=== PATIENT | female | born 1950 | race Hispanic/Latino ===

== ENCOUNTER 2021-04-04 11:26 | Emergency (ER) | payer OTHER ==
[2021-04-04 13:43] LABS: SARS-COV-2 RT PCR POSITIVE (NEGATIVE)
--- NOTE | 2021-04-04 13:49 | ER ---
Nurse's Notes [facility] Name: Elsa Lake Age: 70 yrs Sex: Female : 1950 Arrival Date: 04/04/2021 Time: 11:27 Bed 12 Private MD: Diagnosis: Coronavirus infection, unspecified;Streptococcal pharyngitis Presentation: 04/04 11:33 Chief complaint: Patient states: KATELYNN ear pain, sore throat and cough x2 days. vg1 Coronavirus screen: Vaccine status: Patient reports being unvaccinated. Client denies travel out of the [place] in the last 14 days. Ebola Screen: Patient negative for fever greater than or equal to 101.5 degrees Fahrenheit, and additional compatible Ebola Virus Disease symptoms. Initial Sepsis Screen: Does the patient meet any 2 criteria? No. Patient's initial sepsis screen is negative. Does the patient have a suspected source of infection? No. Patient's initial sepsis screen is negative. Risk Assessment: Do you want to hurt yourself or someone else? Patient reports no desire to harm self or others. Onset of symptoms was April 02, 2021. 11:33 Method Of Arrival: Ambulatory 1 11:33 Acuity: FLORI 4 vg1 Triage Assessment: 11:39 General: Appears in no apparent distress. comfortable, Behavior is calm, cooperative. vg1 Pain: Complains of pain in throat, right ear, left ear Pain currently is 6 out of 10 on a pain scale. Pain began 2-3 days ago. Historical: - Allergies: 11:39 Flu vaccine; vg1 - Home Meds: 11:39 None [Active]; vg1 - PMHx: 11:39 None; vg1 - PSHx: 11:39 section; vg1 - Immunization history:: Client reports having NOT received the Covid vaccine. - Social history:: Smoking status: Patient denies any tobacco usage or history of. Screenin:13 Abuse screen: Denies threats or abuse. Denies injuries from another. Nutritional ww screening: No deficits noted. Tuberculosis screening: No symptoms or risk factors identified. Fall Risk None identified. Assessment: 12:15 General: Appears in no apparent distress. well groomed, well developed, well nourished, ww Behavior is calm, cooperative, appropriate for age. Pain: Complains of pain in uvula, left aspect of posterior pharynx and right aspect of posterior pharynx. Neuro: Level of Consciousness is awake, alert, obeys commands, Oriented to person, place, time, situation, Appropriate for age Speech is normal. Cardiovascular: No deficits noted. Denies chest pain, Capillary refill < 3 seconds Patient's skin is warm and dry. Respiratory: Reports cough that is Airway is patent Respiratory effort is even, unlabored, Respiratory pattern is regular, symmetrical, Breath sounds are clear. GI: No deficits noted. No signs and/or symptoms were reported involving the gastrointestinal system. : No deficits noted. No signs and/or symptoms were reported regarding the genitourinary system. EENT: Throat is reddened Reports nasal congestion. Derm: No deficits noted. No signs and/or symptoms reported regarding the dermatologic system. Skin is intact, Skin is pink, warm \T\ dry. Musculoskeletal: No deficits noted. No signs and/or symptoms reported regarding the musculoskeletal system. 14:13 Reassessment: Patient appears in no apparent distress at this time. No changes from previously documented assessment. Patient and/or family updated on plan of care and expected duration. Pain level reassessed. Vital Signs: 11:33 BP 157 / 80; Pulse 110; Resp 18; Temp 99.5(O); Pulse Ox 96% ; Weight 57.61 kg; Height 4 vg1 ft. 10 in. (147.32 cm); Pain 6/10; 13:42 BP 139 / 66; Pulse 100; Resp 18; ww 11:33 Body Mass Index 26.54 (57.61 kg, 147.32 cm) vg1 Atif Coma Score: 13:42 Eye Response: spontaneous(4). Verbal Response: oriented(5). Motor Response: obeys commands(6). Total: 15. ED Course: 11:27 Patient arrived in ED. as 11:38 Triage completed. vg1 11:39 Arm band placed on. vg1 11:44 COVID swab sent to lab. Flu and/or RSV swab sent to lab. Strep swab sent to lab. vg1 11:51 Kati Ariza RN is Primary Nurse. ww 11:56 Lat[facility]ll[facility]C [facility]. kb 11:56 Jose Braga MD is Attending Physician. kb 14:13 Patient has correct armband on for positive identification. Bed in low position. ww 14:13 No provider procedures requiring assistance completed. Patient did not have IV access ww during this emergency room visit. Administered Medications: No medications were administered Outcome: 13:49 Discharge ordered by . kb 14:13 Discharged to home ambulatory. ww 14:13 Condition: stable 14:13 Discharge instructions given to patient, Instructed on discharge instructions, follow up and referral plans. medication usage, safety practices, quaretine Demonstrated understanding of instructions, follow-up care, medications, Prescriptions given X 1. 14:14 Patient left the ED. ww Signatures: Latasha Ulloa, PILLAR MAN-C PILLAR MAN-Marlys Perez Victoria, RN RN vg1 Kati Ariza RN RN ww Corrections: (The following items were deleted from the chart) 11:39 11:33 BP 157 / 93; Pulse 110bpm; Resp 18bpm; Pulse Ox 96%; Temp 99.5F Oral; 57.61 kg; vg1 Height 4 ft. 10 in.; BMI: 26.5; Pain 6/10; vg1 14:13 12:15 Reassessment: Patient appears in no apparent distress at this time. No changes ww from previously documented assessment. ww
--- NOTE | 2021-04-04 13:49 | EDPHYS ---
Physician Documentation [facility] Name: Elsa Lake Age: 70 yrs Sex: Female : 1950 Arrival Date: 04/04/2021 Time: 11:27 Bed 12 Private MD: ED Physician Jose Braga HPI: 04/04 16:09 This 70 yrs old Female presents to ER via Ambulatory with complaints of Sore kb Throat. 16:09 The patient presents with sore throat. The patient describes throat pain as constant. kb Onset: The symptoms/episode began/occurred 2 day(s) ago. Severity of symptoms: At their worst the symptoms were mild, moderate, in the emergency department the symptoms are unchanged. Modifying factors: The symptoms are alleviated by nothing, the symptoms are aggravated by swallowing, Patient's oral intake status: good unaware of sick contact. Associated signs and symptoms: Pertinent positives: cough, Pertinent negatives fever. The patient has not experienced similar symptoms in the past. The patient has not recently seen a physician. Pt reports sore throat and cough for 2 days. . Historical: - Allergies: 11:39 Flu vaccine; vg1 - Home Meds: 11:39 None [Active]; vg1 - PMHx: 11:39 None; vg1 - PSHx: 11:39 section; vg1 - Immunization history:: Client reports having NOT received the Covid vaccine. - Social history:: Smoking status: Patient denies any tobacco usage or history of. ROS: 16:09 Constitutional: Negative for fever, chills, and weight loss. kb 16:09 ENT: Positive for sore throat. 16:09 Respiratory: Positive for cough, Negative for dyspnea on exertion, hemoptysis, orthopnea, pleurisy, shortness of breath, sputum production, wheezing. 16:09 All other systems are negative. Exam: 16:09 Constitutional: This is a well developed, well nourished patient who is awake, alert, kb and in no acute distress. Head/Face: Normocephalic, atraumatic. Cardiovascular: Regular rate and rhythm with a normal S1 and S2. No gallops, murmurs, or rubs. No pulse deficits. Respiratory: Respirations even and unlabored. No increased work of breathing. Talking in full sentences Skin: Warm, dry with normal turgor. Normal color. MS/ Extremity: Pulses equal, no cyanosis. Neurovascular intact. Full, normal range of motion. Neuro: Awake and alert, GCS 15, oriented to person, place, time, and situation. Moves all extremities. Normal gait. Psych: Awake, alert, with orientation to person, place and time. Behavior, mood, and affect are within normal limits. 16:09 ENT: Posterior pharynx: Tonsils: bilaterally enlarged, with erythema, Uvula: normal, midline, swelling, that is mild, erythema, that is moderate, exudate, is not appreciated. Vital Signs: 11:33 BP 157 / 80; Pulse 110; Resp 18; Temp 99.5(O); Pulse Ox 96% ; Weight 57.61 kg; Height 4 vg1 ft. 10 in. (147.32 cm); Pain 6/10; 13:42 BP 139 / 66; Pulse 100; Resp 18; ww 11:33 Body Mass Index 26.54 (57.61 kg, 147.32 cm) vg1 Atif Coma Score: 13:42 Eye Response: spontaneous(4). Verbal Response: oriented(5). Motor Response: obeys ww commands(6). Total: 15. MDM: 11:56 Patient medically screened. kb 13:47 Data reviewed: vital signs, nurses notes. Data interpreted: Pulse oximetry: on room air kb is 96 %. Interpretation: normal. Counseling: I had a detailed discussion with the patient and/or guardian regarding: the historical points, exam findings, and any diagnostic results supporting the discharge/admit diagnosis, lab results, the need for outpatient follow up, a family practitioner, to return to the emergency department if symptoms worsen or persist or if there are any questions or concerns that arise at home. 13:51 ED course: Monoclonal antibody infusion offered. Pt does not want the treatment. . kb 04/04 11:42 Order name: COVID-19/FLU A+B (Document "Date of Onset" if Symptomatic); Complete Time: vg1 13:47 04/04 11:42 Order name: Strep; Complete Time: 13:02 vg1 Administered Medications: No medications were administered Disposition: 19:50 Co-signature as Attending Physician, Jose Braga MD I agree with the assessment and kdr plan of care. Disposition Summary: 12/16/21 13:49 Discharge Ordered Location: Home kb Condition: Stable kb Diagnosis - Coronavirus infection, unspecified kb - Streptococcal pharyngitis kb Followup: kb - With: Emergency Department - When: As needed - Reason: Worsening of condition Followup: kb - With: Private Physician - When: 2 - 3 days - Reason: Recheck today's complaints, Continuance of care, Re-evaluation by your physician Discharge Instructions: - Discharge Summary Sheet kb - Strep Throat, Adult, [id number] kb - Viral Respiratory Infection, [id number] kb - COVID-19 kb Forms: - Medication Reconciliation Form kb - Thank You Letter kb - Antibiotic Education kb - Prescription Opioid Use kb - Work release form ww Prescriptions: - Augmentin 875-125 mg Oral Tablet - take 1 tablet by ORAL route every 12 hours for 10 days; 20 tablet; Refills: 0, kb Product Selection Permitted Signatures: Dispatcher [employer] EDLatasha Hollis, HAN-C HAN-Jose Shultz MD MD kdr Garcia, Victoria RN RN vg1
[2021-04-04 14:26] VITALS: TEMP 99.5; O2SAT 96
[2021-04-04 14:27] VITALS: BP 139/66
== END 2021-04-04 14:14 | disposition home or self-care (01) ==
LOC: ER 11:26
DX: U07.1 COVID-19 (principal); J02.0 Streptococcal pharyngitis
CPT/HCPCS: 87081; 0240U; 99283